=== PATIENT | male | born 1975 | race African-American/Black ===

== ENCOUNTER 2024-02-11 18:51 | Emergency (ER) | payer OTHER, SELFPAY ==
--- NOTE | 2024-02-11 19:09 | ED.GENADULT ---
HPI - General Adult General Chief complaint: Chest Pain Stated complaint: chest/neck pain right side Time Seen by Provider: 02/11/24 19:09 Source: patient Mode of arrival: ambulatory Limitations: no limitations History of Present Illness HPI narrative: Patient is a 48-year-old male who presents with right chest wall and neck pain that has been intermittent for over a year. Patient states is not tied to anything in particular. Patient still lifts weights with no issue and has never had happened while lifting weights. Patient states it is very random twice a month and only lasts about 30 seconds. Patient still has his gallbladder and thought it was just gas. Patient denies any shortness of breath with symptoms, feeling sweaty or that he would pass out. Pain is not reproducible and is not currently complaining of pain. 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 Related Data Allergies Allergy/AdvReac Type Severity Reaction Status Date / Time No Known Allergies Allergy Verified 02/11/24 19:46 Review of Systems Review of Systems: All systems reviewed & are unremarkable except as noted in HPI and below Constitutional: Constitutional: Denies body ache(s), Denies chills, Denies fatigue, Denies fever(s), Denies headache(s), Denies malaise and Denies weakness Eyes: Eyes: Denies blurry vision, Denies irritation and Denies loss of vision ENT: Denies otalgia, Denies headache(s), Denies nasal discharge, Denies sinus pain and Denies sore throat Cardiovascular: Cardiovascular: Denies chest pain, Denies irregular heart rhythm and Denies dyspnea Respiratory: Respiratory: Denies dyspnea Gastrointestinal: Gastrointestinal: Denies abdominal pain, Denies melena, Denies hematochezia, Denies diarrhea, Denies nausea and Denies vomiting Musculoskeletal: Musculoskeletal: Denies back pain, Denies myalgias, Denies arthralgias and Reports other (Chest wall pain, neck pain) Integumentary/Breasts: Skin/Breast: Denies pruritus and Denies rash Neurologic: Denies headache(s), Denies loss of vision and Denies weakness Psychiatric: Psychiatric: Reports no additional psychiatric complaints Endocrine: Endocrine: Denies fatigue PMFSH Comments At time of signature, agree with nursing past medical, surgical, social and family history. There is no relevant family history pertinent to the presenting complaint. Exam Const: General: cooperative, healthy appearing, comfortable, no acute distress and well nourished Nutritional Appearance: well nourished Orientation/consciousness: patient oriented x3 Limitations: no limitations HENMT: Head: normal to inspection, normocephalic and atraumatic Ears: hearing grossly normal bilaterally and external ears normal Face/Nose/Sinus: Normal external nose present, normal facial exam and face symmetric Face and sinus: normal facial exam and face symmetric Mouth: Yes lip normal Eyes: General: appearance normal, both eyes and all related structures Alignment and Position: alignment normal and position normal Periorbital: periorbital findings normal Eyelids: eyelids normal Pupils: Equal, round and reactive pupils present EOM: EOMs intact bilaterally Neck: Neck: normal visual inspection, full ROM and supple Chest: Chest palpation & inspection: normal inspection of the chest and normal palpation of entire chest wall Resp: Effort & Inspection: normal respiratory effort and able to speak in complete sentences Auscultation: clear to auscultation bilaterally, no crackles, no rales, no rhonchi and no wheezes Cardio: Rate: regular rate Rhythm: regular rhythm Heart sounds: S1 normal heart sound present and S2 normal heart sound present GI: Inspection: normal to inspection GI Palp: No abdominal tenderness, Yes Soft to palpation, No Tenderness to palpation present (GI) and No Guarding due to palpation present (GI) Skin: General skin exam: normal color and no rashes or lesions noted Neuro: General: patient oriented x3 and moves all extremities Cranial nerves: Yes Equal, round and reactive pupils present Speech: normal speech Gait exam (Neuro): Normal gait present Extrem: General: normal to inspection, full ROM and no edema Right upper extremity: normal to inspection, full ROM and normal capillary refill Psych: Appearance: grossly normal and well kempt Mental Status: mental status grossly normal Speech and movement: Normal speech and movement present Affect: normal affect Attitude: cooperative Thought process: Normal thought process present Course Course Emergency Course: Patient is aware of diagnosis, understands and agrees to treatment plan. Anticipatory guidance given. Patient agrees to follow-up as directed and is aware of reasons to seek care at the emergency department. Portions of this record may have been created with voice recognition software Level of Care: Express Care Visit Vital Signs Vital signs: Reviewed Medical Decision Making MDM Narrative Medical decision making narrative: Discussed possible reasons with patient for causing pain. Educated patient on needing to keep track of symptoms and what is going on when they happen. Also educated patient on need for further workup and potentially an ER visit. Exam findings show no acute concerns or changes; patient is non-toxic appearing and is in no distress.? Patient is appropriate for outpatient treatment and follow-up. Discharge instructions reviewed with patient, as well as provided in writing per nursing staff. The instructions also include specific and strict return/GO TO THE ER as well as f/u information. All questions have been answered, and the patient deny any further questions with discharge and discharge plan. Vital Signs Vital Signs: Reviewed ECG Data EKG #1: Attestation: I personally reviewed and interpreted this ECG as follows: ECG completion date: 02/11/24 ECG completion time: 19:21 Prior ECG tracings: not available for review Interpretation: EKG: VR[60], MN int[161], QRS dur:[88], QT/QTc: [411/411], PRT axes: [39 -1 5], Avg RR:[996], QTcB: [441], QTcF: [411] No ST elevation or depression EKG Interpretation: normal rate and sinus rhythm Discharge Plan Discharge Clinical Impression: Chest pain Qualifiers: Chest pain type: unspecified Qualified Code(s): R07.9 - Chest pain, unspecified Patient Disposition: Home, Self-Care Condition: Stable Instructions: Chest Pain (ED) Additional Instructions: Your EKG showed no signs of heart damage today. Establish care with PCP to obtain basic lab work. Keep a diary of when episodes happen and what you are doing that day. Try to limit alcohol intake as a can irritate gallbladder. If symptoms worsen or return please go straight to the ER. Prescriptions: New omeprazole 40 mg capsule,delayed release(DR/EC) 40 mg PO DAILY 14 Days Qty: 14 0RF Follow-up/Referrals: Ender Ferreira MD [Physician] - 3 Days (Establish care) PHYSICIAN,[employer] [Primary Care Provider] - Stand Alone Forms: Work/School Release IP Time of Disposition: 19:48
[2024-02-11 19:15] VITALS: BP 127/89; PULSE 64; RESP 18; TEMP 36.7; O2SAT 100
--- NOTE | 2024-02-11 19:55 | ECG_ITS ---
Test Date: 2024-02-11 19:21:16 Measurements Intervals [place] Rate: 60 P: 39 NE: 161 QRS: -1 QRSD: 88 T: 5 QT: 411 QTc: 411 Interpretive Statements SINUS RHYTHM No previous ECG available for comparison Electronically Signed On 02-12-2024 09:40:00 CDT by Armando Juares M.D.
== END 2024-02-11 19:55 | disposition home or self-care (01) ==
PROVIDERS: Emergency Provider Nurse Practitioner Family
DX: R07.9 Chest pain, unspecified (principal); I10 Essential (primary) hypertension
CPT/HCPCS: 93005; 99203; G0463

== ENCOUNTER 2024-11-02 12:26 | Emergency (ER) | payer OTHER, SELFPAY ==
--- NOTE | ~2024-11-02 | XR_ITS ---
EXAM: XR shoulder RT min 2V DATE: 11/02/2024 14:47 HISTORY: shoulder pain, fall today . COMPARISON: None available. FINDINGS: Normal mineralization. No fracture or dislocation. No lytic or blastic lesion. 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 No erosion or periosteal change. Soft tissues with in normal limits. IMPRESSION: No acute osseous finding in the right shoulder. Reviewed, dictated and finalized at location K.
--- NOTE | ~2024-11-02 | CT_ITS ---
EXAMINATION: CT cervical spine wo con DATE: 11/02/2024 14:41 INDICATION: trauma TECHNIQUE: Computed tomography (CT) of the cervical spine was performed without intravenous contrast. Automated exposure control and iterative reconstruction technique were employed. The dose-length pro duct was 496.62 mGy-cm. COMPARISON: None. FINDINGS: Vertebral Body Alignment: Intact. Reversed lordosis. Craniocervical and atlantoaxial alignment: Moderate degenerative change. Alignment intact. Osseous structures/fracture: No evidence of a lytic or blastic process in the visualized spine. No e vidence of acute fracture. Cervical soft tissues: The paraspinal soft tissues planes are maintained. Degenerative changes: Multilevel degenerative disc disease and facet arthropathy. Severe right neural foraminal narrowing at C3-4 secondary to degenerative changes. No severe central canal narrowing. IMPRESSION: No acute fracture or traumatic malalignment in the cervical spine. Reviewed, dictated and finalized at location K.
[2024-11-02 12:42] VITALS: BP 128/83; PULSE 68; RESP 18; TEMP 36.1; O2SAT 98
[2024-11-02 13:02] VITALS: BP 126/85; PULSE 72; RESP 16; TEMP 36.7; O2SAT 98
[2024-11-02 13:10] VITALS: BP 126/85; PULSE 69; RESP 20; O2SAT 100
--- NOTE | 2024-11-02 13:44 | ED_ITS ---
HPI - General Adult General Chief complaint: Neck Pain/Injury Stated complaint: pain after lifting someone Time Seen by Provider: 11/02/24 12:57 History of Present Illness HPI narrative: 49-year-old male presenting to the emergency department for evaluation for neck pain and right lateral neck pain. Patient reports he had a fall in the shower just a few days ago. 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 Patient describes neck pain that radiates into his right shoulder. Patient also does describe right shoulder pain that radiates down his right arm. Denies any other pain or injury. Patient denies any numbness or weakness. Patient denies any loss of bowel or bladder control. Related Data Allergies Allergy/AdvReac Type Severity Reaction Status Date / Time No Known Allergies Allergy Verified 02/11/24 19:46 Review of Systems Review of Systems: All systems reviewed & are unremarkable except as noted in HPI and below Exam Narrative: APPEARANCE: Well appearing, no pain, no distress, well-nourished. HEAD: normocephalic, atraumatic. EYES: PERRLA/EOMI, conjunctivae clear. NOSE: Normal no drainage EARS:TMS clear with good light reflex. THROAT: Pharynx clear, no exudate. NECK: Midline neck tenderness to palpation RESPIRATORY: Airway patent, respirations nonlabored. Clear to auscultation bilaterally, no rales, rhonchi, wheezing. CARDIOVASCULAR: Regular rate and rhythm without murmurs rubs or gallops. ABDOMINAL: Soft, nontender, nondistended, normal bowel sounds MUSCULOSKELETAL: Midline cervical spine tenderness to palpation with tenderness to right trapezius and right shoulder NEURO: Alert. Cranial nerves II through XII intact. Grossly intact SKIN: Warm, dry. Normal Color Course Vital Signs Vital signs: Vital Signs Temperature 97.0 F L 11/02/24 12:42 Pulse Rate 68 11/02/24 12:42 Respiratory Rate 18 11/02/24 12:42 Blood Pressure 128/83 11/02/24 12:42 Pulse Oximetry 98 11/02/24 12:42 Oxygen Delivery Room Air 11/02/24 12:42 Temperature 98.1 F 11/02/24 13:02 Pulse Rate 69 11/02/24 13:10 Respiratory Rate 20 11/02/24 13:10 Blood Pressure 126/85 11/02/24 13:10 Pulse Oximetry 100 11/02/24 13:10 Oxygen Delivery Room Air 11/02/24 13:10 Medical Decision Making MDM Narrative Medical decision making narrative: 49-year-old male presents to the emergency department for evaluation for cervical spine pain and right lateral neck pain right shoulder pain after having a fall. CT cervical spine x-ray neck were negative for acute fracture dislocation. Patient was treated with [place] Flexeril in the emergency department. Patient was discharged home with Tylenol ibuprofen instructions along with Flexeril for muscle spasm. Differential Diagnosis Differential Diagnosis: Shoulder injury, cervical spine injury, muscular strain Vital Signs Vital Signs: Vital Signs Temperature 97.0 F L 11/02/24 12:42 Pulse Rate 68 11/02/24 12:42 Respiratory Rate 18 11/02/24 12:42 Blood Pressure 128/83 11/02/24 12:42 Pulse Oximetry 98 11/02/24 12:42 Oxygen Delivery Room Air 11/02/24 12:42 Temperature 98.1 F 11/02/24 13:02 Pulse Rate 69 11/02/24 13:10 Respiratory Rate 20 11/02/24 13:10 Blood Pressure 126/85 11/02/24 13:10 Pulse Oximetry 100 11/02/24 13:10 Oxygen Delivery Room Air 11/02/24 13:10 Imaging Data Radiologist's impression: Impressions Cervical Spine CT 11/02/24 14:47 IMPRESSION: No acute fracture or traumatic malalignment in the cervical spine. Shoulder X-Ray 11/02/24 14:48 IMPRESSION: No acute osseous finding in the right shoulder. Discharge Plan Discharge Clinical Impression: Strain of neck muscle, Strain of cervical portion of right trapezius muscle Patient Disposition: Home Condition: Stable Instructions: Antibiotic Form, Cervical Strain (ED), Neck Pain (ED) Additional Instructions: Tylenol and ibuprofen for pain control. Flexeril for muscle spasm. Have close follow-up with your primary care physician. Patient Language: [place] Prescriptions: New cyclobenzaprine 10 mg tablet 10 mg PO BID PRN (Reason: muscle spasm) Qty: 14 0RF No [place] omeprazole 40 mg capsule,delayed release(DR/EC) 40 mg PO DAILY 14 Days Qty: 14 0RF Follow-up/Referrals: PHYSICIAN,MEDICAL SPECIALIST [Primary Care Provider] -
[2024-11-02] MEDS: HYDROcodone/acetaminophen (*CRX) 5-325 MG TABLET 1 TAB PO (14:05)
[2024-11-02] MEDS: CYCLOBENZAPRINE HCL 10 MG TABLET PO (14:06)
== END 2024-11-02 15:10 | disposition home or self-care (01) ==
PROVIDERS: Emergency Provider Emergency Medicine
DX: S16.1XXA Strain of muscle, fascia and tendon at neck level, initial encounter (principal); S46.811A Strain of other muscles, fascia and tendons at shoulder and upper arm level, right arm, initial encounter; W18.2XXA Fall in (into) shower or empty bathtub, initial encounter; X50.0XXA Overexertion from strenuous movement or load, initial encounter
CPT/HCPCS: 72125; 73030; 99284; A9270